=== PATIENT | male | born 1960 | race Caucasian/White ===

== ENCOUNTER → 2024-04-18 14:27 | Outpatient (REF) | payer OTHER, SELFPAY | LOC: RAD 14:27 | PROVIDERS: ATTENDING PHYSICIAN Internal Medicine Cardiovascular Disease | DX: I71.9 Aortic aneurysm of unspecified site, without rupture (principal) | CPT/HCPCS: 71275; Q9967 ==

== ENCOUNTER → 2024-07-11 08:11 | Outpatient (REF) | payer OTHER, SELFPAY | LOC: HWRAD 08:11 | PROVIDERS: ATTENDING PHYSICIAN Internal Medicine Hematology & Oncology; FAMILY PHYSICIAN Physician Assistant Medical | DX: D45 Polycythemia vera (principal) | CPT/HCPCS: 76700 ==

== ENCOUNTER 2025-05-09 17:27 | Emergency (ER) | payer OTHER, SELFPAY ==
[2025-05-09 17:30] VITALS: BP 129/84
[2025-05-09] MEDS: NSS 1000 IV (20:30)
[2025-05-09 20:50] LABS: Hematocrit 38.8 % (39.0-52.0); Hemoglobin 11.3 g/dL (13.0-18.0); Mean Corp Hgb Conc. 29.1 g/dL (33.0-37.0); Mean Corpuscular Volume 62.5 fL (80.0-94.0); Nucleated Red Blood Cells % 0 % (-); Platelet Count 435 10^3/uL (130-400); Red Cell Dist. Width 20.1 % (11.5-14.5)
--- NOTE | 2025-05-09 21:02 | ED.GENMED ---
History of Present Illness
General
Chief Complaint: Anal/Rectal Problem
Source: patient
Exam Limitations: none
Time Seen by Provider: 05/09/25 19:59
Nursing documentation reviewed up to this point in time: agreed with
History of Present Illness
History of Present Illness:
64-year-old male with history of polycythemia vera and IDDM, HLD presenting with severe anal pain which started a couple of days ago. Initially, the pain was minor, but it worsened, reaching an intensity the patient describes as '10 plus' from
around 3:00 PM today. The patient attempted bowel movements, which were painful, but denies any associated abdominal pain, fever, or chills. He used idro-iem-rmjnbtc treatments, including Preparation H, lidocaine spray, Colace, and Metamucil, with
limited relief. The pain is localized to the area just at top of the anus. The patient reports some discharge. He denies any prior history of hemorrhoids or similar episodes.
Past History
Past History
ED Past Medical History: Other (Polycythemia vera with phlebotomy q 1-2 months for HCT > 45)
ED Past Surgical History: None
Review of Systems
Review of Systems
Allergies reviewed?: Yes
All Other Systems: ROS reviewed and negative except as documented in HPI and ROS
Constitutional: Denies fever or chills
ABD/GI: Reports other (perianal pain); Denies abdominal pain or nausea
Phy Exam
Physical Exam
Physical Exam:
GENERAL: No acute distress. A&Ox3.
CONSTITUTIONAL: Afebrile.
EYES: clear, conjunctivae normal
ENMT: moist mucus membranes, Pharynx nl
RESPIRATORY: Regular respirations, nonlabored, lungs clear.
CARDIOVASCULAR: Regular rate and rhythm, no murmurs, no rubs.
GI: Soft, nontender, normal BS
Rectal: Exquisitely tender at the upper rim of the anus, no palpable abscess, no significant swelling, no discharge
MUSCULOSKELETAL: Moves with ease. Well perfused.
SKIN: Warm, dry, pink
PSYCH: Normal mood and affect. Well kept, interactive and appropriate
NEUROLOGIC: Awake, alert and oriented. No focal neurological deficits
Course
Orders/Labs/Results
Orders:
Orders
05/09/25 20:18
0.9% Sodium Chloride 1000 ml [Nss] 1,000 ml IV BOLUS
05/09/25 20:19
CT Pelvis With Iv Contrast Urgent
Comment:
Reason For Exam: bárbara anal pain
05/09/25 20:38
Complete Blood Count/With Diff Urgent
Comprehensive Metabolic Panel Urgent
05/09/25 22:49
Bladder Scan- Treatment ONCE
Enema- Treatment ONCE
Type: Milk of Molasses
Abnormal Lab Results
05/09/25
20:38
WBC 17.3 H 10^3/uL
(4.8-10.8)
RBC 6.21 H 10^6/uL
(4.70-6.10)
Hgb 11.3 L g/dL
(13.0-18.0)
Hct 38.8 L %
(39.0-52.0)
MCV 62.5 L fL
(80.0-94.0)
MCH 18.2 L pg
(27.0-31.0)
MCHC 29.1 L g/dL
(33.0-37.0)
RDW 20.1 H %
(11.5-14.5)
Plt Count 435 H 10^3/uL
(130-400)
Abs Immat Gran (auto) 0.2 H 10^3/uL
(0-0.05)
Absolute Neuts (auto) 12.5 H 10^3/uL
(1.4-6.5)
Absolute Monos (auto) 1.1 H 10^3/uL
(0.1-0.6)
Immature Gran % 0.9 H %
(0-0.5)
Lymphocytes % 17.1 L %
(20.5-51.1)
Glucose 120 H mg/dl
(70-99)
05/09/25 20:38
05/09/25 20:38
Vital Signs
Initial and Last Documented VS:
Initial Vital Signs
Temp Pulse Resp BP Pulse Ox
98.5 F 80 16 129/84 98
05/09/25 17:30 05/09/25 17:30 05/09/25 17:30 05/09/25 17:30 05/09/25 17:30
Last Documented Vital Signs
Temp Pulse Resp BP Pulse Ox
98.5 F 88 16 128/84 98
05/09/25 17:30 05/10/25 00:47 05/10/25 00:47 05/10/25 00:47 05/10/25 00:47
MDM/Problems Addressed
Differential Diagnosis Includes:
1. Anal abscess
2. Hemorrhoids
3. Anal fissure
4. Thrombosed external hemorrhoid
5. Pilonidal cyst status thank you
6. Proctitis
MDM/Problems Addressed:
64-year-old male with history of polycythemia vera and IDDM, HLD presenting with severe anal pain which started a couple of days ago. Initially, the pain was minor, but it worsened, reaching an intensity the patient describes as '10 plus' from
around 3:00 PM today. The patient attempted bowel movements, which were painful, but denies any associated abdominal pain, fever, or chills. He used buox-enq-qtdvrfz treatments, including Preparation H, lidocaine spray, Colace, and Metamucil, with
limited relief. The pain is localized to the area just at top of the anus. The patient reports some discharge. He denies any prior history of hemorrhoids or similar episodes.
Problem list:
Acute:
- Severe anal pain with possible abscess
Chronic:
- Polycythemia vera
- Diabetes mellitus
- Hyperlipidemia
Plan: A computed tomography scan with intravenous contrast is planned to assess the anal region for a possible abscess. Bloodwork will be performed, and intravenous access will be established for the contrast administration.
CBC: WBC 17.3, HCT 38.8 he states his baseline due to polycythemia vera
CMP WNL
CT pelvis w IV contrast radiology report read: IMPRESSION:
Moderate urinary bladder distention.
Moderate rectal stool bolus may reflect constipation. No overt CT evidence for stercoral colitis. No evidence for perirectal/perianal abscess.
Normal appendix visualized.
Evaluation of additional soft tissue structures such as ligaments and tendons is limited by CT. Grossly, no abnormalities noted.
05/10/25 12:45 a.m.
After BM post enema, pt states he voided. Bladder scan showing 1000 ml in bladder post void
Pt is refusing reyes catheter, informed of possible complications and still refuses. Is not uncomfortable
He will take a container home, given out pt lab slip to drop off the urine here tomorrow.
He will return if he becomes uncomfortable.
Acute Exacerbation and/or Progression of Chronic Illness: DM and Other (Polycythemia vera)
*Pulse Oximetry
SaO2: 98
Oxygen Mode of Delivery: Room air
Patient hypoxic: not evaluated
*Critical Care Note
Total Time (30-74mins, 75-104mins- exclusive of procedures): Not Applicable
ED Attending Note
-
Portions of this chart may have been created with voice recognition software.� Occasional wrong word or��sound alike� substitutions may have occurred due to the inherent limitations of voice recognition software.
Discharge Plan
Departure
Patient Disposition: Home (Routine Discharge)
Date of Disposition: 05/10/25
Time of Disposition: 00:55
Patient with high blood pressure during this ER visit?: No
Condition: Fair
Discharge Problem:
Acute retention of urine, Constipation, Leukocytosis
Instructions: Urinary retention - Discharge instructions, Constipation in adults - ED discharge instructions
Referrals:
Robert Cochran MD [Active, Urology] - As needed
Ventura Laura DO [Family Provider, Family Practice]
Activity Restrictions/Additional Instructions:
As we discussed, return here at any time if you are unable to urinate.
Complications of urine retention may include urine infection, kidney infection, bladder damage and kidney damage.
Bring your urine sample to the out pt lab tomorrow to test for infection.
Call your doctor tomorrow and inform of today's visit so he can check the urinalysis result
Return here immediately for worsening abdominal pain, fever, chills or feeling sicker in any way
I have provided you with the name of a Urologist to use.
Your WBCs are elevated at 17.8 which may indicate infection or may be from your polycythemia vera. Compare it to your baseline from [facility]. Have your blood work rechecked tomorrow also.
Interventions
Interventions:
*Risk Screen - Suicide Last Done: 05/09/25 17:32
*General Assessment Last Done: 05/09/25 20:31
*Neglect/Abuse Screening Last Done: 05/09/25 17:32
*ED- Fall Risk Assessment Last Done: 05/10/25 01:29
*ED COVID-19 Vaccine History Last Done: 05/09/25 20:31
*Nursing Disposition Last Done: 05/10/25 01:29
DB-Hzalci-Sovevuykoy Assessment Last Done: 05/09/25 23:40
ED-Skin Assessment Last Done: 05/09/25 23:40
Discharge Date and Time
Discharge Date/Time: 05/10/25 01:15
Print Language: WELSH
[2025-05-09 21:10] LABS: ALT (SGPT) 20 U/L (0-50); AST (SGOT) 23 U/L (17-59); Albumin 4.9 g/dl (3.5-5.0); Alkaline Phosphatase 53 U/L (38-126); Blood Urea Nitrogen 19 mg/dl (9-20); Calcium 9.9 mg/dl (8.4-10.2); Carbon Dioxide 26 mmol/L (22-30); Chloride 103 mmol/L (98-107); Glucose 120 mg/dl (70-99); Potassium 4.3 mmol/L (3.5-5.1); Sodium 137 mmol/L (135-145); Total Protein 7.4 g/dl (6.3-8.2); eGFR > 60.00
[2025-05-10 00:47] VITALS: BP 128/84
== END 2025-05-10 01:15 | disposition home or self-care (01) ==
LOC: EMR 17:27
PROVIDERS: Registered Nurse; EMERGENCY PHYSICIAN Emergency Medicine; FAMILY PHYSICIAN Family Medicine
DX: K59.00 Constipation, unspecified (principal); D72.829 Elevated white blood cell count, unspecified; R33.9 Retention of urine, unspecified; E11.9 Type 2 diabetes mellitus without complications; D45 Polycythemia vera; E78.5 Hyperlipidemia, unspecified; Z79.4 Long term (current) use of insulin
CPT/HCPCS: 96360; 99284; 72193; 80053; 85025; Q9967

== ENCOUNTER → 2025-05-10 07:51 | Outpatient (REF) | payer OTHER, SELFPAY ==
[2025-05-10 09:10] LABS: Urine Character Clear (Clear)
== END ==
LOC: REG 07:51
PROVIDERS: ATTENDING PHYSICIAN Registered Nurse; FAMILY PHYSICIAN Family Medicine
DX: Z09 Encounter for follow-up examination after completed treatment for conditions other than malignant neoplasm (principal)
CPT/HCPCS: 81003